=== PATIENT | female | born 1980 | race Caucasian/White ===

== ENCOUNTER 2016-09-25 14:43 | Emergency (ER) | payer BC ==
[~2016-09-25 14:43] MED LIST: NORCO 5/325 TAB1 TAB PO
[2016-09-25] MEDS ORDERED: SYNTHROID100 MC1 PO (15:15)
[2016-09-25] MEDS ORDERED: [UNRECOGNIZED DRUG - REMARK] (15:16)
[2016-09-25] MEDS ORDERED: LABETALOL HCL100 M1 PO ×2 (15:16→15:18)
== END 2016-09-25 18:00 ==
LOC: EDMED 14:43
DX: G43.909 Migraine, unspecified, not intractable, without status migrainosus (principal); E03.9 Hypothyroidism, unspecified; Z87.891 Personal history of nicotine dependence; Z79.890 Hormone replacement therapy; Z79.899 Other long term (current) drug therapy
CPT/HCPCS: J1200; J1885; J2765; J7030